=== PATIENT | female | born 2005 | race Caucasian/White ===

== ENCOUNTER 2023-07-03 12:55 | Outpatient (REF) | payer BC, SELFPAY ==
--- NOTE | ~2023-07-03 | MR_ITS ---
EXAMINATION: MR KNEE WITHOUT CONTRAST, LEFT CLINICAL INFORMATION: Effusion instability COMPARISON: None available. TECHNIQUE: MRI of the knee without contrast was performed using routine sequences on a high-field scanner. FINDINGS: MENISCI: Medial Meniscus: Intact Lateral Meniscus: Slight irregularity of the posterior horn indicative of a tear. Next field LIGAMENTS: Cruciate: There is a complete tear the anterior cruciate ligament likely acute. PCL intact. Collateral: Intact EXTENSOR MECHANISM: Intact ARTICULAR CARTILAGE/BONE: Patellofemoral Compartment: Normal Medial Compartment: Subchondral bone marrow edema along the posterior margin the medial plateau. Lateral Compartment: Subchondral edema along the posterior margin of the lateral plateau compatible with bone contusion Minimal subchondral edema in the sulcus terminalis. Overlying cartilage intact. JOINT FLUID AND BURSAE: There is a moderate to joint effusion. There is a thin medial plica. MR/MR knee LT wo con IMPRESSION: 1. Acute complete tear of the anterior cruciate ligament. Bone contusion pattern consistent with acute ACL injury. 2. Tear of the posterior horn of the lateral meniscus. 3. Joint effusion.
== END 2023-07-03 12:56 | disposition home or self-care (01) ==
LOC: HO.MRI 12:55
PROVIDERS: Visit Provider Student in an Organized Health Care Education/Training Program
DX: M25.462 Effusion, left knee (principal); M25.362 Other instability, left knee
CPT/HCPCS: 73721